=== PATIENT | female | born 1975 | race Caucasian/White ===

== ENCOUNTER → 2024-12-22 07:54 | Outpatient (REF) | payer BC, SELFPAY | LOC: HWRAD 07:54 | PROVIDERS: ATTENDING PHYSICIAN Obstetrics & Gynecology | DX: R10.2 Pelvic and perineal pain (principal); R10.9 Unspecified abdominal pain | CPT/HCPCS: 76770; 76830; 76856 ==

== ENCOUNTER → 2025-01-18 15:16 | Outpatient (REF) | payer BC, SELFPAY | LOC: RAD 15:16 | PROVIDERS: ATTENDING PHYSICIAN Internal Medicine Hematology & Oncology | DX: D36.0 Benign neoplasm of lymph nodes (principal); D53.9 Nutritional anemia, unspecified; D68.9 Coagulation defect, unspecified | CPT/HCPCS: 70491; 71260; 74177; Q9967 ==

== ENCOUNTER → 2025-02-18 10:25 | Outpatient (REF) | payer BC, SELFPAY | LOC: HWRCS 10:25 | PROVIDERS: ATTENDING PHYSICIAN Internal Medicine Cardiovascular Disease | DX: I34.0 Nonrheumatic mitral (valve) insufficiency (principal); I34.1 Nonrheumatic mitral (valve) prolapse; R00.2 Palpitations | CPT/HCPCS: 93306 ==